=== PATIENT | female | born 1980 | race Hispanic/Latino ===

== ENCOUNTER 2017-03-09 06:29 | Emergency (ER) | payer BC ==
[2017-03-09] MEDS ORDERED: Naloxone 0.4 mg/ml Inj (Adult) IVP STA (06:30)
[2017-03-09] MEDS ORDERED: Dextrose 50% SYRINGE Inj (50 ml) ONE (06:39)
[2017-03-09 06:43] VITALS: BMI 24.7
--- NOTE | 2017-03-09 06:47 | ED PDOC ---
Arrival/HPI - General Time Seen by Provider: 03/09/17 06:30 - History of Present Illness Narrative History of Present Illness (Text): 36F BIBA after [facility] pt woke up after ems gave narcan IN. Past Medical History - Infectious Disease Hx of Infectious Diseases: None - Psychiatric Hx Substance Use: Yes - Anesthesia Hx Anesthesia: Yes Family/Social History Family/Social History: Unknown Family HX Smoking Status: Heavy Smoker > 10 Cigarettes Daily Hx Alcohol Use: Yes Hx Substance Use: Yes Allergies/Home Meds Allergies/Adverse Reactions: Allergies No Known Allergies Allergy (Verified 07/17/16 23:53) Review of Systems - Review of Systems Systems not reviewed;Unavailable: Altered Mental Status Physical Exam - Physical Exam Physical Exam Limitations: Altered Mental Status Mental Status: Positive for: Lethargic - Systems Exam Head: Present: Atraumatic. No: Contusion, Ecchymosis, Abrasion, Laceration Pupils: Present: PERRL Mouth: Present: Moist Mucous Membranes Nose (Internal): No: Epistaxis Neck: Present: Normal Range of Motion Respiratory/Chest: Present: Clear to Auscultation. No: Respiratory Distress, Accessory Muscle Use Cardiovascular: Present: Regular Rate and Rhythm Abdomen: No: Distention Upper Extremity: Present: NORMAL PULSES, Other (track auguste present). No: Deformity Lower Extremity: No: Edema, Deformity Neurological: Present: Other (pt is lethargic but combative, non-verbal, attempting to get out of bed after narcan. moving all ext w good strength. no focal deficits. ) Medical Decision Making - RAD Interpretation Radiology Orders: 03/09/17 06:39 HEAD W/CONTRAST [CT] Stat - Medication Orders Current Medication Orders: Discontinued Medications Dextrose (Dextrose 50% Inj) Confirm Administered Dose 50 ml .ROUTE .STK-MED ONE Stop: 03/09/17 06:40 Disposition/Present on Arrival - Present on Arrival History of DVT/PE: No History of Uncontrolled Diabetes: No Urinary Catheter: No History Surgical Site Infection Following: None - Disposition
--- NOTE | 2017-03-09 07:13 | ED PDOC ---
Physical Exam Vital Signs Reviewed: Yes Vital Signs Temp Pulse Resp BP Pulse Ox 03/09/17 11:12 98 F 73 19 119/72 98 03/09/17 09:08 98.5 F 74 20 130/71 96 03/09/17 07:53 96.5 F L 100 H 19 131/63 100 03/09/17 06:44 95.9 F L 126 H 16 123/101 H 100 Temperature: Hypothermic Blood Pressure: Hypertensive Pulse: Tachycardic Respiratory Rate: Normal Medical Decision Making ED Course and Treatment: 03/09/17 07:11: Patient sign out from overnight. Patient found unresponsive and hypothermic by EMS. Suspicion for drug overdose. Patient became more awake after Narcan administration. 03/09/17 08:30: Patient is more alert and awake. She is slurring her words, but able to answer simple questions. Pt appears less agitated. Airway is patent. 03/09/17 11:34: Patient is awake and alert. Speaking full sentence. 03/09/17 11:48 tolerated PO, denies complaints, asking to be dc'd home, states she used drugs recreationally and did not have any SI/HI. Ambulates with steady gait. Clinically sober. States she feels comfortable being dc'd home. Pt states she understands to return to the ER right away for new or worsening symptoms or for inability to f/u with PMD or specialist as instructed. Patient states that she fully agrees with and understands discharge instructions. States that she agrees with the plan and disposition. Verbalized and repeated discharge instructions and plan. I have given the patient opportunity to ask any additional questions. - Lab Interpretations Lab Results: 03/09/17 07:22 03/09/17 08:00 Lab Results 03/09/17 08:00: Sodium 142, Potassium 3.8, Chloride 104, Carbon Dioxide 24, Anion Gap 18, BUN 10, Creatinine 0.7, Est GFR ( Amer) > 60, Est GFR (Non- Af Amer) > 60, Random Glucose 93, Calcium 9.7, Total Bilirubin 0.6, AST 49 H, ALT 49, Alkaline Phosphatase 54, Total Creatine Kinase 659 H, CK-MB (CK-2) 18.4 H, CK-MB (CK-2) % 2.8, Total Protein 8.0, Albumin 4.4, Globulin 3.6, Albumin/ Globulin Ratio 1.2 03/09/17 07:44: Urine Opiates Screen Positive H, Urine Methadone Screen Negative , Ur Barbiturates Screen Negative, Ur Phencyclidine Scrn Negative, Ur Amphetamines Screen Negative, U Benzodiazepines Scrn Positive H, U Oth Cocaine Metabols Positive H, U Cannabinoids Screen Negative 03/09/17 07:44: Urine Color Straw, Urine Appearance Clear, Urine pH 7.0, Ur Specific [place] 1.010, Urine Protein Negative, Urine Glucose (UA) Negative, Urine Ketones Negative, Urine Blood Negative, Urine Nitrate Negative, Urine Bilirubin Negative, Urine Urobilinogen 0.2, Ur Leukocyte Esterase Negative, Urine HCG, Qual Negative 03/09/17 07:22: Alcohol, Quantitative < 10 03/09/17 07:22: Salicylates < 1 L, Acetaminophen < 10.0 L 03/09/17 07:22: WBC 9.3, RBC 4.43, Hgb 13.5, Hct 39.2, MCV 88.5, MCH 30.5, MCHC 34.4, RDW 13.8, Plt Count 328, MPV 10.3, Gran % 48.4 L, Lymph % (Auto) 40.3 H, [place] % (Auto) 7.3 H, Eos % (Auto) 3.5, Baso % (Auto) 0.5, Gran # 4.50, Lymph # 3.8 H, [place] # 0.7 H, Eos # 0.3, Baso # 0.05 03/09/17 07:20: POC Glucose (mg/dL) 129 H 03/09/17 06:38: POC Glucose (mg/dL) 50 L - RAD Interpretation Radiology Orders: 03/09/17 06:50 CHEST PORTABLE [RAD] Stat 03/09/17 07:56 HEAD W/O CONTRAST [CT] Stat - Medication Orders Current Medication Orders: Discontinued Medications Dextrose (Dextrose 50% Inj) Confirm Administered Dose 50 ml .ROUTE .STGLO-MED ONE Stop: 03/09/17 06:40 Last Admin: 03/09/17 06:42 Dose: 50 ml Sodium Chloride (Sodium Chloride 0.9%) 2,000 mls @ 1,000 mls/hr IV .Q2H STA Stop: 03/09/17 10:45 Last Admin: 03/09/17 08:52 Dose: 1,000 mls/hr Lorazepam (Ativan) 2 mg IVP ONCE ONE PRN Reason: Protocol Stop: 03/09/17 07:00 Last Admin: 03/09/17 07:10 Dose: 2 mg Lorazepam (Ativan) 2 mg IVP ONCE ONE PRN Reason: Protocol Stop: 03/09/17 07:53 Last Admin: 03/09/17 07:57 Dose: 2 mg Naloxone HCl (Narcan) 0.4 mg IVP STAT STA Stop: 03/09/17 06:31 Last Admin: 03/09/17 06:30 Dose: 0.4 mg - Scribe Statement The provider has reviewed the documentation as recorded by the Editaibe Alyssa Page Provider Scribe Attestation: All medical record entries made by the Scribe were at my direction and personally dictated by me. I have reviewed the chart and agree that the record accurately reflects my personal performance of the history, physical exam, medical decision making, and the department course for this patient. I have also personally directed, reviewed, and agree with the discharge instructions and disposition. Disposition/Present on Arrival - Present on Arrival Any Indicators Present on Arrival: No History of DVT/PE: No History of Uncontrolled Diabetes: No Urinary Catheter: No History of Decub. Ulcer: No History Surgical Site Infection Following: None - Disposition Have Diagnosis and Disposition been Completed?: Yes Diagnosis: Drug use Disposition: HOME/ ROUTINE Disposition Time: 11:54 Patient Plan: Discharge Condition: GOOD Discharge Instructions (ExitCare): Polysubstance Abuse (ED) Additional Instructions: PLEASE RETURN TO THE EMERGENCY DEPARTMENT FOR NEW OR WORSENING SYMPTOMS. RETURN RIGHT AWAY IF YOU CANNOT FOLLOW UP WITH YOUR PRIMARY CARE DOCTOR, CLINIC, OR SPECIALIST IN 1-2 DAYS. Referrals: PCP,NO [Primary Care Provider] - Follow up with primary Dez Narvaez DO [Staff Provider] - Follow up with primary Radha Ashley MD [Staff Provider] - Follow up with primary Forms: [employer] ([place])
[2017-03-09 07:29] LABS: BASO # 0.05 K/mm3 (0.0-2.0); BASO % 0.5 % (0.0-3.0); EOS # 0.3 (0.0-0.7); EOS % 3.5 % (1.5-5.0); GRAN % 48.4 % (50.0-68.0); HEMOGLOBIN 13.5 gm/dL (12.0-16.0); LYMPH # 3.8 (1.2-3.4); LYMPH % 40.3 % (22.0-35.0); MEAN CELL VOLUME 88.5 fL (80.0-105.0); MEAN CORPUSCULAR HEMOGLOBIN 30.5 pg (25.0-35.0); MEAN CORPUSCULAR HGB CONC 34.4 g/dl (31.0-37.0); MEAN PLATELET VOLUME 10.3 fl (7.0-11.0); MONO # 0.7 (0.1-0.6); MONO % 7.3 % (1.0-6.0); PLATELET COUNT 328 10^3/uL (120.0-450.0); RBC 4.43 10^6/uL (3.5-6.1); RED CELL DISTRIBUTION WIDTH 13.8 % (11.5-14.5); WHITE BLOOD COUNT 9.3 10^3/ul (4.5-11.0)
[2017-03-09 07:43] LABS: SALICYLATE < 1 mg/dL (2.0-20.0)
[2017-03-09 07:47] LABS: ACETAMINOPHEN < 10.0 ug/ml (10.0-20.0)
[2017-03-09 07:58] LABS: URINE BILIRUBIN NEGATIVE (NEGATIVE); URINE BLOOD NEGATIVE (NEGATIVE); URINE GLUCOSE (UA) NEGATIVE (NEGATIVE); URINE LEUKOCYTE ESTERASE NEGATIVE Leu/uL (NEGATIVE); URINE NITRATE NEGATIVE (NEGATIVE); URINE PROTEIN NEGATIVE mg/dL (<30 mg/dL); URINE UROBILINOGEN 0.2 E.U./dL (<1 E.U./dL)
[2017-03-09 08:02] LABS: HCG,QUALITATIVE URINE NEGATIVE (NEGATIVE); URINE APPEARANCE CLEAR (CLEAR); URINE COLOR STRAW (YELLOW)
[2017-03-09 08:12] LABS: BARBITURATES, UR NEGATIVE (NEGATIVE); BENZODIAZEPINES, UR POSITIVE (NEGATIVE); OPIATES, UR POSITIVE (NEGATIVE); PHENCYCLIDINE, UR NEGATIVE (NEGATIVE)
[2017-03-09 08:25] LABS: ALB/GLOB RATIO 1.2 (1.1-1.8); ALBUMIN 4.4 g/dL (3.0-4.8); ALT/SGPT 49 U/L (7-56); AST/SGOT 49 U/L (15-39); BLOOD UREA NITROGEN 10 mg/dL (7-21); CALCIUM 9.7 mg/dL (8.4-10.5); GFR AFRICAN-AMERICAN > 60; GFR NON-AFRICAN AMERICAN > 60
[2017-03-09 08:41] LABS: CK MB% 2.8 % (2.5-3.0); CK-MB 18.4 ng/mL (0.0-3.6)
[2017-03-09] MEDS ORDERED: Sodium Chloride 0.9% 2,000 ML IV STA (08:46)
--- NOTE | 2017-03-09 11:10 | CARD ---
APPROVED REPORT EKG Measurement Heart [id number] <Conclusion> Normal sinus rhythm Prolonged QT Wandering baseline
[2017-03-09 11:12] VITALS: RESP 19; TEMP 98
--- NOTE | 2017-03-09 11:16 | CT ---
PROCEDURE: CT HEAD WITHOUT CONTRAST. HISTORY: ams COMPARISON: None available. TECHNIQUE: Axial computed tomography images were obtained through the head/brain without intravenous contrast. Radiation dose: Total exam DLP = 725 mGy-cm. This CT exam was performed using one or more of the following dose reduction techniques: Automated exposure control, adjustment of the mA and/or kV according to patient size, and/or use of iterative reconstruction technique. FINDINGS: HEMORRHAGE: No intracranial hemorrhage. BRAIN: No mass effect or edema. No atrophy or chronic microvascular ischemic changes. VENTRICLES: Unremarkable. No hydrocephalus. CALVARIUM: Unremarkable. PARANASAL SINUSES: Unremarkable as visualized. No significant inflammatory changes. MASTOID AIR CELLS: Unremarkable as visualized. No inflammatory changes. OTHER FINDINGS: None. IMPRESSION: No acute findings
--- NOTE | 2017-03-09 11:59 | RAD ---
HISTORY: ams COMPARISON: No prior. FINDINGS: LUNGS: No active pulmonary disease. PLEURA: No significant pleural effusion identified, no pneumothorax apparent. CARDIOVASCULAR: Normal. OSSEOUS STRUCTURES: No significant abnormalities. VISUALIZED UPPER ABDOMEN: Normal. OTHER FINDINGS: None. IMPRESSION: No active disease.
[2017-03-09 12:02] VITALS: BP 119/62; PULSE 74; O2SAT 100
== END 2017-03-09 12:03 | disposition home or self-care (01) ==
LOC: ED 06:29
DX: F19.10 Other psychoactive substance abuse, uncomplicated (principal)
CPT/HCPCS: 70450; 71010; 80053; 81003; 82550; 82553; 82948; 84703; 85025; 93005; 96361; 96374; 96375; 96376; 99285; G0480; J2060; J2310; J7040